=== PATIENT | female | born 1945 ===

== ENCOUNTER 2025-02-11 12:53 | Emergency (ER) | payer MEDICARE, SELFPAY ==
[2025-02-11 13:06] VITALS: BP 119/72
[2025-02-11 13:07] VITALS: BP 119/72
[2025-02-11 13:10] LABS: Glucose - Point of Care 104 mg/dl (70-99)
--- NOTE | 2025-02-11 13:27 | ED.GENMED ---
History of Present Illness
<Lula Cobos PA-C - Last Filed: 02/11/25 21:08>
General
Chief Complaint: Change in Mental Status
Source: spouse
Exam Limitations: dementia
Time Seen by Provider: 02/11/25 13:12
History of Present Illness
History of Present Illness:
79yoF with a history of Crohn's disease and dementia presenting via EMS for evaluation of shakiness. Patient was going to the [facility] today and she accidentally slammed the car door on her L hand about 2 hours ago. After this, she started to shake
uncontrollably. Her decided to bring her to his son-in-law's house because he is a nurse. While she was in the car, her head was back with her eyes closed and she was unresponsive to questions for about 30 seconds. She did not slump over
or fall. Her shakiness continued so EMS was activated. Mental status is otherwise at baseline. Patient is belching on arrival and states this is typical for her. She denies any pain in the left hand. No reported chest pain or shortness
of breath.
Phy Exam
<Lula Cobos PA-C - Last Filed: 02/11/25 21:08>
General Physical Exam
General Presentation: well appearing and no apparent distress
General Skin: warm and dry
General Habitus: normal
General Mental: alert
ENT Exam
ENT Exam: normocephalic
Cardiovascular Exam
Cardiovascular Exam: regular rate/rhythm
Pulmonary Exam
Pulmonary Exam: lungs clear, no respiratory distress, no rales, no crackles, no rhonchi and no wheezing
Gastrointestinal Exam
Gastrointestinal Exam: non tender, soft and non distended
Neurological Exam
Neurological Exam: alert and other (Patient intermittently tremulous during exam. Awake and talking throughout assessment. Follows commands in all extremities. )
Musculoskeletal Exam
Musculoskeletal Exam: other (Ecchymosis noted to proximal L 5th finger)
Skin Exam
Skin Exam: warm/dry
Psychiatric Exam
Psychiatric Exam: normal mood/affect
Course
<Lula Cobos PA-C - Last Filed: 02/11/25 21:08>
Orders/Labs/Results
Orders:
Orders
02/11/25 13:23
Electrocardiogram (*1) Urgent
Reason for Study: Fatigue / Weakness
Cardiac Monitoring- Treatment ONCE
EKG- Treatment ONCE
CR Hand - Left Min 3 Views Urgent
Comment:
Reason For Exam: injury
02/11/25 13:24
CT Head W/o Iv Contrast Urgent
Comment:
Reason For Exam: AMS
02/11/25 13:31
Complete Blood Count/With Diff Urgent
Comprehensive Metabolic Panel Urgent
Free T4 Urgent
TSH Reflex To Free T4 Urgent
Troponin I Urgent
02/11/25 14:04
Urinalysis Reflex To Culture Urgent
Date Specimen was Collected: 02/11/25
Time Specimen was Collected: 13:56
Urine Microscopic Reflex Cult Urgent
Urine Culture Urgent
NUPUR Source: U
Specimen Description:
Date Specimen was Collected: 02/11/25
Time Specimen was Collected: 13:56
Abnormal Lab Results
02/11/25 02/11/25 02/11/25
13:09 13:31 14:04
MCH 31.9 H pg
(27.0-31.0)
Neutrophils % 76.9 H %
(42.2-75.2)
Lymphocytes % 15.2 L %
(20.5-51.1)
BUN 27 H mg/dl
(7-17)
Creatinine 1.1 H mg/dL
(0.6-1.0)
Glucose 135 H mg/dl
(70-99)
TSH (Reflex) 7.65 H uIU/ml
(0.47-4.68)
Urine Bilirubin 1+ A
(Negative)
Leukocyte Esterase Rfl 1+ A
(Negative)
Urine Albumin (Reflex) 2+ A
(Neg - Trace)
POC Glucose 104 H mg/dl
(70-99)
02/11/25 13:31
02/11/25 13:31
Vital Signs
Initial and Last Documented VS:
Initial Vital Signs
Pulse Resp BP
61 35 119/72
02/11/25 13:06 02/11/25 13:06 02/11/25 13:06
Last Documented Vital Signs
Temp Pulse Resp BP Pulse Ox
97.5 F 69 15 130/87 93
02/11/25 13:07 02/11/25 15:15 02/11/25 15:15 02/11/25 14:00 02/11/25 14:15
<Sam Madrid PA-C - Last Filed: 02/11/25 18:59>
Orders/Labs/Results
Orders:
Orders
02/11/25 13:23
Electrocardiogram (*1) Urgent
Reason for Study: Fatigue / Weakness
Cardiac Monitoring- Treatment ONCE
EKG- Treatment ONCE
CR Hand - Left Min 3 Views Urgent
Comment:
Reason For Exam: injury
02/11/25 13:24
CT Head W/o Iv Contrast Urgent
Comment:
Reason For Exam: AMS
02/11/25 13:31
Complete Blood Count/With Diff Urgent
Comprehensive Metabolic Panel Urgent
Free T4 Urgent
TSH Reflex To Free T4 Urgent
Troponin I Urgent
02/11/25 14:04
Urinalysis Reflex To Culture Urgent
Date Specimen was Collected: 02/11/25
Time Specimen was Collected: 13:56
Urine Microscopic Reflex Cult Urgent
Urine Culture Urgent
NUPUR Source: U
Specimen Description:
Date Specimen was Collected: 02/11/25
Time Specimen was Collected: 13:56
Abnormal Lab Results
02/11/25 02/11/25 02/11/25
13:09 13:31 14:04
MCH 31.9 H pg
(27.0-31.0)
Neutrophils % 76.9 H %
(42.2-75.2)
Lymphocytes % 15.2 L %
(20.5-51.1)
BUN 27 H mg/dl
(7-17)
Creatinine 1.1 H mg/dL
(0.6-1.0)
Glucose 135 H mg/dl
(70-99)
TSH (Reflex) 7.65 H uIU/ml
(0.47-4.68)
Urine Bilirubin 1+ A
(Negative)
Leukocyte Esterase Rfl 1+ A
(Negative)
Urine Albumin (Reflex) 2+ A
(Neg - Trace)
POC Glucose 104 H mg/dl
(70-99)
02/11/25 13:31
02/11/25 13:31
Vital Signs
Initial and Last Documented VS:
Initial Vital Signs
Pulse Resp BP
61 35 119/72
02/11/25 13:06 02/11/25 13:06 02/11/25 13:06
Last Documented Vital Signs
Temp Pulse Resp BP Pulse Ox
97.5 F 69 15 130/87 93
02/11/25 13:07 02/11/25 15:15 02/11/25 15:15 02/11/25 14:00 02/11/25 14:15
Shaunnalt;Lula Cobos PA-C - Last Filed: 02/11/25 21:08>
MDM/Problems Addressed
Differential Diagnosis Includes:
79yoF here for shakiness that started after she closed the car door on her L hand 2 hours ago. Also had a 30 second episode in the car where she was not answering questions. Hx of dementia and otherwise at baseline mental status per . Patient
noted to be intermittently tremulous on exam but is able to answer questions during this. No clinical evidence of seizure activity. Differential diagnosis includes: pain response, tremors, rigors, anxiety
Initial ED plan: Check cardiac labs, TSH, UA, EKG, L hand x-rays, and CT head.
Final assessment: Labs reveal elevated TSH of 7.64, free T4 normal. reports that her levothyroxine was recently cut in half by her PCP. Remainder of labs unremarkable. No signs of infection on urinalysis. On reassessment, patient is resting
comfortably and watching TV. states she is back to baseline and her shaking has resolved. Case signed out to Vega Madrid PA-C pending CT head and hand x-rays.
<Lula Cobos PA-C - Last Filed: 02/11/25 21:08>
*EKG
Interpreted by ED Provider?: Yes
EKG Intrepretation Date: 02/11/25
Heart Rate: 64
Rate: normal
Rhythm: sinus
[place]: normal axis
Interval: normal interval
QRS Pattern: normal QRS
Ischemia: no ischemia
<Sam Madrid PA-C - Last Filed: 02/11/25 18:59>
*Pulse Oximetry
Patient hypoxic: no
*Critical Care Note
Total Time (30-74mins, 75-104mins- exclusive of procedures): Not Applicable
<Sam Madrid PA-C - Last Filed: 02/11/25 18:59>
Update Note
Update Note:
Assumed care of pt from Lula Cobos PA-C pending CTH and hand Xr. At this time pt at normal mental status, imaging unremarkable. Will be d/c home
ED Attending Note
<Lula Cobos PA-C - Last Filed: 02/11/25 21:08>
-
Portions of this chart may have been created with voice recognition software.� Occasional wrong word or��sound alike� substitutions may have occurred due to the inherent limitations of voice recognition software.
Discharge Plan
Departure
Patient Disposition: Home (Routine Discharge)
Date of Disposition: 02/11/25
Time of Disposition: 17:02
Patient with high blood pressure during this ER visit?: No
Discharge Problem:
Vasovagal response
Instructions: Altered Mental Status (DC)
Referrals:
Henrietta Souza, DO [Family Provider]
Interventions
Interventions:
*Risk Screen - Suicide Last Done: 02/11/25 13:07
*General Assessment Last Done: 02/11/25 13:07
*Neglect/Abuse Screening Last Done: 02/11/25 13:07
*ED- Fall Risk Assessment Last Done: 02/11/25 14:01
*ED COVID-19 Vaccine History Last Done: 02/11/25 14:01
*Nursing Disposition Last Done: 02/11/25 17:10
ED- Pulmonary Assessment Last Done: 02/11/25 14:02
ED- Neurological Assessment Last Done: 02/11/25 14:02
ED- Cardiac Assessment Last Done: 02/11/25 14:02
ED Swallowing Screen Last Done: 02/11/25 17:00
Discharge Date and Time
Discharge Date/Time: 02/11/25 17:10
Print Language: CHINESE
[2025-02-11 13:39] LABS: Hematocrit 39.6 % (37.0-47.0); Hemoglobin 13.6 g/dL (12.0-16.0); Mean Corp Hgb Conc. 34.3 g/dL (33.0-37.0); Mean Corpuscular Volume 92.7 fL (81.0-99.0); Nucleated Red Blood Cells % 0 %; Platelet Count 189 10^3/uL (130-400); Red Cell Dist. Width 12.5 % (11.5-14.5)
[2025-02-11 14:00] VITALS: BP 130/87; BMI 20.7
[2025-02-11 14:00] LABS: ALT (SGPT) 17 U/L (0-35); AST (SGOT) 25 U/L (14-36); Albumin 4.5 g/dl (3.5-5.0); Alkaline Phosphatase 70 U/L (38-126); Blood Urea Nitrogen 27 mg/dl (7-17); Calcium 9.2 mg/dl (8.4-10.2); Carbon Dioxide 26 mmol/L (22-30); Chloride 102 mmol/L (98-107); Glucose 135 mg/dl (70-99); Potassium 4.6 mmol/L (3.5-5.1); Sodium 138 mmol/L (135-145); Total Protein 7.2 g/dl (6.3-8.2); eGFR 51.43
[2025-02-11 14:11] LABS: Troponin I < 0.012 ng/ml
[2025-02-11 14:23] LABS: Urine Character Clear (Clear)
[2025-02-11 14:53] LABS: Urine Squamous Cell 0-2 /LPF (Few)
[2025-02-11 14:54] LABS: Urine Red Blood Cell 0-2 /HPF (0-2)
[2025-02-11 14:55] LABS: Urine White Cell 0-2 /HPF (0-5)
== END 2025-02-11 17:10 | disposition home or self-care (01) ==
LOC: EMR 12:53
PROVIDERS: Physician Assistant; EMERGENCY PHYSICIAN Emergency Medicine; FAMILY PHYSICIAN Family Medicine
DX: R41.82 Altered mental status, unspecified (principal); S60.052A Contusion of left little finger without damage to nail, initial encounter; W22.8XXA Striking against or struck by other objects, initial encounter; F03.90 Unspecified dementia, unspecified severity, without behavioral disturbance, psychotic disturbance, mood disturbance, and anxiety
CPT/HCPCS: 99284; 70450; 73130; 80053; 81003; 81015; 82962; 84439; 84443; 84484; 85025; 87086; 93005